=== PATIENT | female | born 1965 | race Native Hawaiian/Other Pacific Islander ===

== ENCOUNTER 2016-11-21 13:29 | Emergency (ER) | payer OTHER ==
[~2016-11-21] VITALS: Ht 165.1 cm; Wt 113.4 kg
[2016-11-21 13:30] VITALS: TEMP 98
[2016-11-21 14:39] LABS: PLATELET COUNT 271 K/uL (152-353)
[2016-11-21 14:44] LABS: POTASSIUM 3.3 mmol/L (3.6-5.2); SODIUM 137 mmol/L (136-145)
[2016-11-21 17:20] VITALS: BP 158/88
== END 2016-11-21 17:32 | disposition home or self-care (01) ==
LOC: ED 13:29
DX: R56.9 Unspecified convulsions (principal); F12.10 Cannabis abuse, uncomplicated; F19.10 Other psychoactive substance abuse, uncomplicated
CPT/HCPCS: 36415; 80053; 80307; 81000; 85027; 96361; 96374; 96376; 99284; G0479; J3360

== ENCOUNTER 2017-05-28 10:15 | Outpatient (CLI) | payer OTHER | END 2017-05-28 11:16 | disposition short-term general hospital (02) | LOC: AMB 10:15 | DX: R41.82 Altered mental status, unspecified (principal) | CPT/HCPCS: A0425; A0427 ==

== ENCOUNTER 2017-09-04 08:11 | Emergency (ER) | payer OTHER ==
[~2017-09-04] VITALS: Ht 162.6 cm; Wt 90.7 kg
[2017-09-04 08:39] VITALS: TEMP 97.5
[2017-09-04 08:56] LABS: PLATELET COUNT 275 K/uL (152-353)
[2017-09-04 09:01] LABS: POTASSIUM 3.8 mmol/L (3.6-5.2); SODIUM 140 mmol/L (136-145)
[2017-09-04 10:17] VITALS: BP 131/74
== END 2017-09-04 12:40 | disposition home or self-care (01) ==
LOC: ED 08:11
PROC: 0T9B70Z Drainage of Bladder with Drainage Device, Via Natural or Artificial Opening (ICD-10-PCS; principal; 2017-09-04)
DX: R56.9 Unspecified convulsions (principal); R68.89 Other general symptoms and signs; F12.90 Cannabis use, unspecified, uncomplicated
CPT/HCPCS: 36415; 51702; 80053; 80307; 81000; 82550; 82553; 84484; 85027; 93005; 96374; 99283; G0479; J2060

== ENCOUNTER → 2017-09-04 08:11 | Outpatient (CLI) | payer OTHER | END | disposition short-term general hospital (02) | LOC: AMB 08:11 | DX: R41.82 Altered mental status, unspecified (principal); R56.9 Unspecified convulsions | CPT/HCPCS: A0425; A0427 ==

== ENCOUNTER 2018-01-25 14:23 | Emergency (ER) | payer OTHER ==
[~2018-01-25] VITALS: Ht 160 cm; Wt 90.9 kg
[2018-01-25 14:45] VITALS: BP 147/90; TEMP 98
== END 2018-01-25 16:30 | disposition home or self-care (01) ==
LOC: ED 14:23
DX: S61.211A Laceration without foreign body of left index finger without damage to nail, initial encounter (principal); W23.0XXA Caught, crushed, jammed, or pinched between moving objects, initial encounter
CPT/HCPCS: 99282

== ENCOUNTER 2021-07-28 13:07 | Inpatient (IN) | payer OTHER ==
[~2021-07-28] VITALS: Ht 167.6 cm; Wt 102.5 kg
[2021-07-28] VITALS (7 sets, daily range): BP systolic 150–203; BP diastolic 71–95; TEMP 97.8–98.8; Ht 167.6 cm; Wt 102.5 kg
[2021-07-28 13:22] LABS: PLATELET COUNT 293 K/uL (152-353)
--- NOTE | 2021-07-28 17:37 | NUR ---
07/28/21 1600 PT TO ROOM 1129 DX RECURRENT SEIZURES,HTN NONCOMPLAINT.ALSO HYPOKALEMIA.ORIENTED TO ROOM CALL LIGHT WITHIN REACH.CC
[2021-07-29] VITALS: BP 143/99; TEMP 98.7
--- NOTE | 2021-07-29 03:28 | NUR ---
Pt resting in bed with eyes closed at this time. No seizure activity observed. Pt has been alert and oriented x4 during hs med pass. SL to RAC without redness/swelling. Keppra IV given as ordered without adverse reaction noted. Pt ambulates to bathroom unassisted with staff standing by. No s/s of distress noted. Call light in easy reach.
[2021-07-29 04:00] VITALS: BP 143/65; TEMP 98.4
[2021-07-29 06:01] LABS: PLATELET COUNT 233 K/uL (152-353)
[2021-07-29 06:19] LABS: POTASSIUM 3.4 mmol/L (3.6-5.2)
--- NOTE | 2021-07-29 07:52 | NUR ---
New Admission: 66 inches and IBW = 130+/+/-10% (117 to 143 lbs.) and kcal needs for IBW x 25 = 1500, x 30 = 1800, x 35 = 2200, x 40 = 2400 kcal/day, protein needs x .8 to 1.5 = 47 to 89 grams per day and fluids for IBW x 25 to 40 = 1500 to 2400 ml/cc per day and is 174% of IBW and BMI at 36.47 and is Class II Obesity and has diagnosis of conversion d/o with seizures, HTN, non-compliant, and is a 55YOF, 2 gm na diet plan, hypokalemia, FELIPE, sprain to shoulder, abd. migraine, gallstones, drug abuse, marijuana abuse, elevated troponin, K 3.4 depressed along with alt at 2.1 and gl 127 elevtaed, alb 3.1 depressed, obesity and tobacco abuse and ate 100% of meals. RD Recommendations: 1-OT and Pt to work with the patient as needed. 2-MOnitor labs 3-Add NCS HIgh fiber to diet plan 4-If will not follow the diet as ordered please get a dietary refusal form signed and please in the EMR 5-Make sure hydrated 6-May want to add K foods with trays as a banana or oranges 7-Stress HBV protein foods-Meats, eggs RD available as needed
[2021-07-29 08:00] VITALS: BP 134/83; TEMP 98.7
--- NOTE | 2021-07-29 13:21 | NUR ---
07/29/21 1300 PT TOOK BATH AND WASHED HAIR PRIOR TO TEST EEG. 07/29/21 1320 SALINE LOCK REMOVED TO LT AC WAS LEAKING AND BLOODY APPLIED 2X2 SECURED WITH TAPE.CC 07/29/21 1324 PT TAKEN TO RESP FOR EEG VIA STRETCHER.CC
--- NOTE | 2021-07-29 14:29 | NUR ---
07/29/21 1420 PT BACK TO ROOM 1129 FROM EEG.CC
--- NOTE | 2021-07-29 14:40 | NUR ---
07/29/21 1440 DSICHARGE INSTRUCTIONS GIVEN AND SIGNED.ALSO RX X2 TO PATIENT.TOOK OUT VIA WHEELCHAIR TO [facility].CC
== END 2021-07-29 15:00 | disposition home or self-care (01) | DRG 101 ==
LOC: ED 13:07 → MED/SURG 15:20
PROVIDERS: Emergency Medicine; ADMIT Internal Medicine Endocrinology, Diabetes & Metabolism; ATTEND Internal Medicine Endocrinology, Diabetes & Metabolism
DX: G40.89 Other seizures (principal); I10 Essential (primary) hypertension; E66.8 Other obesity; Z68.26 Body mass index [BMI] 26.0-26.9, adult; Z72.0 Tobacco use; E87.6 Hypokalemia; D72.828 Other elevated white blood cell count
CPT/HCPCS: 36415; 80048; 80053; 80307; 84484; 85027; 87635; 93005; 96360; 96365; 96366; 96375; 99284; J0360; J1953; U0003

== ENCOUNTER 2022-11-07 10:10 | Emergency (ER) | payer OTHER ==
[~2022-11-07] VITALS: Ht 167.6 cm; Wt 113.4 kg
[2022-11-07 10:23] VITALS: TEMP 97.8
[2022-11-07 11:10] LABS: PLATELET COUNT 237 K/uL (152-353)
[2022-11-07 11:24] LABS: PARTIAL THROMBOPLASTIN TIME 23.6 SECONDS (24.5-33.6)
[2022-11-07 13:51] VITALS: BP 162/81
== END 2022-11-07 15:55 | disposition left against medical advice (07) ==
LOC: ED 10:10
PROVIDERS: Family Medicine
DX: G40.909 Epilepsy, unspecified, not intractable, without status epilepticus (principal); I10 Essential (primary) hypertension; Z53.29 Procedure and treatment not carried out because of patient's decision for other reasons; F17.210 Nicotine dependence, cigarettes, uncomplicated
CPT/HCPCS: 80053; 80185; 80307; 81002; 81025; 82542; 82550; 83735; 84484; 85027; 85610; 85730; 93005; 96365; 96367; 99284; J1953; J3490